=== PATIENT | female | born 1970 | race Caucasian/White ===

== ENCOUNTER 2020-11-02 14:51 | Emergency (ER) | payer BC, SELFPAY ==
[2020-11-02 14:57] VITALS: BP 145/88; PULSE 92; RESP 16; TEMP 37.1; O2SAT 100
--- NOTE | 2020-11-02 15:41 | ED.SKABFB ---
HPI - Skin/Abscess/Foreign Bdy General Chief complaint: Skin/Abscess/Foreign Body Stated complaint: rash Time Seen by Provider: 11/02/20 15:21 Source: patient and RN notes reviewed Mode of arrival: ambulatory Limitations: no limitations History of Present Illness HPI narrative: Patient presents today complaining of a 2-day history of hives. This seem to be worse today and have spread from her neck to her chest back about at her scalp. Denies trying any new foods, medications, household products. No new exposures to plants or animals. She took 1 Benadryl earlier this morning, 1 around 11 AM, and 1 prior to arrival. She has gotten no relief from the Benadryl. MD complaint: rash Related Data Home Medications Medication Instructions Recorded Confirmed levonorgestrel-ethinyl estrad tablet 11/02/20 [Vienva] valsartan-hydrochlorothiazide tablet 11/02/20 Allergies Allergy/AdvReac Type Severity Reaction Status Date / Time No Known Allergies Allergy Unverified 11/02/20 14:56 Review of Systems Review of Systems: Narrative: CONSTITUTIONAL: Denies body aches, fever, chills, or sweats. EYES: Denies visual changes, redness, or discharge. ENT: Denies rhinorrhea, congestion, sore throat, or otalgia. CARDIOVASCULAR: Denies chest pain, palpitations, or edema. RESPIRATORY: Denies cough or dyspnea. GASTROINTESTINAL: Denies abdominal pain, nausea, vomiting, or diarrhea. GENITOURINARY: Denies dysuria or hematuria. SKIN: + Hives MUSCULOSKELETAL: Denies back pain, joint pain, or myalgia. NEUROLOGIC: Denies headache, numbness, tingling, or weakness. PSYCH: Denies depression or anxiety. [facility] Past Medical History Medical History (Updated 11/02/20 @ 16:29 by Erendira Dozier, [facility], ) Hypertension Family History Family History (Updated 01/30/14 @ 07:13 by DOCTOR UNKNOWN) Father Hypertension Mother Hypertension Social History Social History Smoking status: Former smoker Smoking end date: 06/05/03 Comments At time of signature, I have reviewed and agree with nursing past medical, surgical, social and family history unless otherwise noted. Please see nursing chart for further information. There is no relevant family history pertinent to the presenting complaint Exam Narrative: Exam Narrative: GENERAL: Well-appearing, well-nourished, and in no acute distress. HEAD: Normocephalic, atraumatic. EYES: EOMI. No redness or drainage. Conjunctivae normal. ENT: Mucous membranes pink and moist. Nares clear. No rhinorrhea. Throat normal. Uvula midline. NECK: Normal AROM. Supple. No lymphadenopathy. CHEST: No respiratory distress. Clear to auscultation. HEART: Regular rate and rhythm. No murmur appreciated. Normal peripheral pulses. ABDOMEN: Soft, nontender, nondistended, normal active bowel sounds. MUSCULOSKELETAL: No bony tenderness. EXTREMITIES: Normal range of motion. No edema. SKIN: Warm, dry. Capillary refill normal. Normal skin turgor.+ Urticarial lesions to the neck, chest, bilateral arms, low back, and scalp. No facial swelling. NEURO: No focal deficits. Alert and oriented x3. Gait steady. PSYCH: Normal affect. No signs of depression or anxiety. Course Vital Signs Vital signs: Vital Signs Temperature 98.7 F 11/02/20 14:57 Pulse Rate 92 11/02/20 14:57 Respiratory Rate 16 11/02/20 14:57 Blood Pressure 145/88 H 11/02/20 14:57 Pulse Oximetry 100 11/02/20 14:57 Temperature 98.7 F 11/02/20 14:57 Pulse Rate 92 11/02/20 14:57 Respiratory Rate 16 11/02/20 14:57 Blood Pressure 145/88 H 11/02/20 14:57 Pulse Oximetry 100 11/02/20 14:57 Reviewed. Pt has been instructed to follow up with her PCP regarding her elevated blood pressure today. MDM - Skin/Abscess/Foreign Bdy Differential Diagnosis Differential diagnosis: Likely abscess of skin or subcutaneous tissue, urticaria, herpes zoster, allergic reaction to drug, cellulitis, eczema, insect bites, impetigo and contact
[2020-11-02] MEDS: methylPREDNISolone SOD SUCC 125 MG VIAL IM (15:42)
== END 2020-11-02 16:02 | disposition home or self-care (01) ==
PROVIDERS: Emergency Provider Nurse Practitioner; PCP Family Medicine Adolescent Medicine
DX: L50.9 Urticaria, unspecified (principal); I10 Essential (primary) hypertension
CPT/HCPCS: 96372; 99213; G0463; J2930

== ENCOUNTER → 2021-02-25 13:11 | Outpatient (CLI) | payer BC, SELFPAY ==
--- NOTE | ~2021-02-25 | MM_ITS ---
EXAMINATION: MM screening fouzia BI w delmi HISTORY: Screening mammogram TECHNIQUE: Craniocaudal and mediolateral oblique 3-D tomosynthesis images were obtained and synthetic 2-D images were generated. Bilateral rotated lateral cc views. .CAD analysis was submitted and inter preted. COMPARISON: 04/18/2018, 04/27/2012 bilateral digital screening mammogram examinations BREAST PARENCHYMAL COMPOSITION: The breasts are heterogeneously dense, which may obscure small masses . FINDINGS: 6 mm circumscribed right axillary tail probable lymph node; likely the corner of this lymph node is evident on 04/18/2018 right MLO view.. There is no evidence of suspicious mass, calcificatio n, or architectural distortion to suggest malignancy in either breast. There has been no suspicious i nterval change. IMPRESSION: 1. No mammographic evidence of malignancy. 2. Recommend routine screening mammography in one year. BI-RADS Category 2: Benign finding(s). Reviewed, dictated and finalized at location A.
== END ==
PROVIDERS: PCP Family Medicine Adolescent Medicine; Visit Provider Family Medicine Adolescent Medicine
DX: Z12.31 Encounter for screening mammogram for malignant neoplasm of breast (principal)
CPT/HCPCS: 77063; 77067

== ENCOUNTER 2021-04-12 00:03 | Day surgery (SDC) | payer BC, SELFPAY ==
[2021-03-30 12:37] VITALS: BMI 27.9
--- NOTE | 2021-04-09 15:48 | PM.HPGS ---
History of Present Illness History of Present Illness Consent: Risks, benefits, and alternatives have been discussed and questions answered. Patient agrees to proceed with procedure. Chief complaint: neoplasm screening Narrative: Brooke Callahan is a 50 year old female referred for colon cancer screening Review of Systems Review of Systems: All systems reviewed & are unremarkable except as noted in HPI and below PMFSH Past Medical History Medical History Hypertension Family History Family History Father Hypertension Mother Hypertension Social History Social History Smoking status: Former smoker Smoking end date: 06/05/03 Alcohol intake: current Drinks per week: 5 Substance use: never Living arrangements: with family Spiritual care concerns: No Meds Home Medications and Allergies Home Medications Medication Instructions Recorded Confirmed Type levonorgestrel-ethinyl estrad 1 tablet PO DAILY 11/02/20 03/30/21 History [Vienva] metoprolol succinate 100 mg PO DAILY 03/30/21 03/30/21 History Allergies Allergy/AdvReac Type Severity Reaction Status Date / Time No Known Allergies Allergy Verified 03/30/21 12:34 Exam Resp: Auscultation: clear to auscultation bilaterally Cardio: Rate: regular rate Rhythm: regular rhythm GI: GI Palp: Yes Soft to palpation and No Tenderness to palpation present (GI) Assessment and Plan Assessment and plan (1) Colon cancer screening: Code(s): Z12.11 - Encounter for screening for malignant neoplasm of colon Status: Acute Assessment and Plan: Colonoscopy with possible biopsy or polypectomy or cautery or injection of substances.
[2021-04-12 07:15] VITALS: BP 157/100; PULSE 87; RESP 16; TEMP 36.7; O2SAT 100; BMI 28.0
[2021-04-12] MEDS: LACTATED RINGERS 1,000 ML 150 ML IV CONT (07:29)
--- NOTE | 2021-04-12 07:36 | WPDANESEPPF ---
Anes - Initial Pre Proc Eval Procedure: Operation Date: 04/12/21 08:00 Proposed Procedures p Screening Colonoscopy - Artie Mccurdy MD Date/Time: 04/12/21 07:36 Surgeon: Artie Mccurdy MD Pre Op Diagnosis: neoplasm screening Patient Data Age: 50 Gender: F Height: 1.68 m Weight: 78.9 kg Last Vital Signs Temp 36.7 C 04/12/21 07:15 Pulse 87 04/12/21 07:15 Resp 16 04/12/21 07:15 BP 157/100 H 04/12/21 07:15 Pulse Ox 100 04/12/21 07:15 Allergies Allergy/AdvReac Type Severity Reaction Status Date / Time No Known Allergies Allergy Verified 04/12/21 07:14 Home Medications Medication Instructions Recorded Confirmed Type levonorgestrel-ethinyl estrad 1 tablet PO DAILY 11/02/20 03/30/21 History [Vienva] metoprolol succinate 100 mg PO DAILY 03/30/21 03/30/21 History Patient hx anesthesia problems: none Family hx anesthesia problems: none Results Review: All pre-operative results and documents have been reviewed as part of the pre-operative evaluation. [facility] Past Medical History Medical History (Updated 04/12/21 @ 07:37 by Jose Caraballo MD) Hypertension Rectal fistula Family History Family History Father Hypertension Mother Hypertension Social History Social History Smoking status: Former smoker Smoking end date: 06/05/03 Alcohol intake: current Drinks per week: 5 Substance use: never Living arrangements: with family Spiritual care concerns: No Anes - Eval Final PreProcedure Day of Procedure 04/12/21 07:36 Patient weight: overweight Heart: regular rate and rhythm Lungs: clear to auscultation Airway: Mallampati scale class 1 Neurological: alert and oriented Last oral intake: >/= 8 hours ASA classification: II Emergent: no Anesthetic plan: proceed Anesthesia type and monitoring: general GIVS and standard monitoring Results Review: All pre-operative results and documents have been reviewed as part of the pre-operative evaluation. Informed Consent: The patient's anesthetic plan and its attendant risks and benefits were discussed with the patient/family/POA. Questions were solicited and answers provided to the satisfaction of the patient/family/POA.
[2021-04-12 08:24] VITALS: BP 136/87; PULSE 85; RESP 18; O2SAT 100
[2021-04-12 08:34] VITALS: BP 138/87; PULSE 84; RESP 37; O2SAT 100
[2021-04-12 08:44] VITALS: BP 147/94; PULSE 81; RESP 16; O2SAT 100
== END 2021-04-12 08:48 | disposition home or self-care (01) ==
PROVIDERS: PCP Family Medicine Adolescent Medicine; Visit Provider Internal Medicine Gastroenterology
PROC: 0DJD8ZZ Inspection of Lower Intestinal Tract, Via Natural or Artificial Opening Endoscopic (ICD-10-PCS; CPT 45378; principal; 2021-04-12 08:00)
DX: Z12.11 Encounter for screening for malignant neoplasm of colon (principal); K57.30 Diverticulosis of large intestine without perforation or abscess without bleeding; I10 Essential (primary) hypertension; Z87.891 Personal history of nicotine dependence
CPT/HCPCS: 45378; J2704; J7120

== ENCOUNTER → 2022-09-06 15:53 | Outpatient (CLI) | payer BC, SELFPAY ==
--- NOTE | ~2022-09-06 | MM_ITS ---
EXAMINATION: MM screening fouzia BI w delmi HISTORY: Screening mammogram TECHNIQUE: Craniocaudal and mediolateral oblique 3-D tomosynthesis images were obtained and synthetic 2-D images were generated. Bilateral rotated lateral CC views. CAD analysis was submitted and interp reted. COMPARISON: 02/25/2021, 04/18/2018 bilateral screening mammogram examinations BREAST PARENCHYMAL COMPOSITION: The breasts are heterogeneously dense, which may obscure small masses . FINDINGS: There is no evidence of suspicious mass, calcification, or architectural distortion to sugg est malignancy in either breast. There has been no suspicious interval change. IMPRESSION: 1. No mammographic evidence of malignancy. 2. Recommend routine screening mammography in one year. BI-RADS Category 1: Negative Reviewed, dictated and finalized at location A.
== END ==
PROVIDERS: PCP Family Medicine Adolescent Medicine; Visit Provider Physician Assistant
DX: Z12.31 Encounter for screening mammogram for malignant neoplasm of breast (principal)
CPT/HCPCS: 77063; 77067

== ENCOUNTER 2024-07-11 13:54 | Outpatient (CLI) | payer BC, SELFPAY ==
--- NOTE | ~2024-07-11 | MM_ITS ---
EXAMINATION: MM screening fouzia BI w delmi HISTORY: Screening TECHNIQUE: Craniocaudal and mediolateral oblique 3-D tomosynthesis images were obtained and synthetic 2-D images were generated. CAD analysis was submitted and interpreted. COMPARISON: Comparison to multiple prior studies sequentially, with oldest reviewed study dated 04/05. BREAST PARENCHYMAL COMPOSITION: Dense: The breasts are heterogeneously dense, which may obscure small masses FINDINGS: There is no evidence of suspicious mass, calcification, or architectural distortion to sugg est malignancy in either breast. There has been no suspicious interval change. IMPRESSION: 1. No mammographic evidence of malignancy. 2. Recommend routine screening mammography in one year. BI-RADS Category 1: Negative Reviewed, dictated and finalized at location B. [employer]
== END 2024-07-11 13:55 | disposition home or self-care (01) ==
LOC: MICIMG 13:54
PROVIDERS: PCP Family Medicine Adolescent Medicine; Visit Provider Family Medicine Adolescent Medicine
DX: Z12.31 Encounter for screening mammogram for malignant neoplasm of breast (principal)
CPT/HCPCS: 77063; 77067

== ENCOUNTER 2024-08-03 00:15 | Emergency (ER) | payer BC, SELFPAY ==
[2024-08-03 00:20] VITALS: BP 177/103; PULSE 110; RESP 20; TEMP 36.2; O2SAT 96
[2024-08-03 00:46] LABS: Add Urine Microscopic? YES; Appearance Urine Clear (Clear); Bacteria Urine None Seen /hpf; Bilirubin Urine Negative (Negative); Blood Urine Negative (Negative); Color Urine Dark Yellow (Yellow); Glucose Urine UA Negative (Negative); Ketones Urine 2+ mg/dL (Negative); Leukocyte Esterase Ur Negative LEU/UL (Negative); Need Manual Microscopic Reviewed; Nitrate Urine Positive (Negative); Non Pathogenic Casts 0-2; Protein Urine Negative (Negative); RBC Urine 0-2 /hpf (0-2); Squamous Epithelial Cell Urine Occasional /hpf (Few); Urobilinogen Urine 0.2 mg/dL (<2.0); WBC Urine 0-5 /hpf (0-3); pH Urine 7.5 (5.0-9.0)
[2024-08-03 02:00] VITALS: BP 171/99; PULSE 103; RESP 16; TEMP 37.2; O2SAT 100
--- NOTE | 2024-08-03 02:05 | ED.ABDPAIN ---
HPI - Abdominal Pain General Chief Complaint: Urogenital-Female <Rosario Peoples APRN - Last Filed: 08/03/24 04:56> Stated Complaint: Abd pain, n/v, urinary symptoms <Rosario Peoples APRN - Last Filed: 08/03/24 04:56> Time Seen by Provider: 08/03/24 01:46 <Rosario Peoples APRN - Last Filed: 08/03/24 04:56> History of Present Illness HPI narrative: Patient is a 53-year-old female presents to the ER with complaints significant abdominal pain that started around 5:30 p.m. on August 02, 2024. She reports she has had to urinate more frequently recently. Patient reports pain is constant and does not worsen with palpation. She denies any recent fevers, constipation, shortness of breath, chest pain. Pt endorses a history of HTN, hyperlipidemia, rectal abscesses, joint pain. She reports she last had a bowel movement yesterday morning and it was ?normal for her. <Rosario Peoples APRN - Last Filed: 08/03/24 04:56> Related Data Allergies/Adverse Reactions: Allergies Allergy/AdvReac Type Severity Reaction Status Date / Time lisinopril AdvReac Intermediate cough Verified 08/03/24 02:03 <Rosario Peoples APRN - Last Filed: 08/03/24 04:56> Review of Systems Review of Systems: All systems reviewed & are unremarkable except as noted in HPI and below <Rosario Peoples APRN - Last Filed: 08/03/24 04:56> [facility] Past Medical History Medical History: Medical History Normal colonoscopy 04/12/21 Repeat Rectal fistula Hypertension <Rosario Peoples APRN - Last Filed: 08/03/24 04:56> Family History Family History: Family History Father Hypertension Mother Hypertension Acute myocardial infarction Colon polyp Heart disease Sibling Depression <Rosario Peoples APRN - Last Filed: 08/03/24 04:56> Social History Social History: Social History Smoking status: Former smoker (Quit 20 years ago) Second hand tobacco smoke exposure: No Smoking end date: 06/05/03 Alcohol intake: current Drinks per week: 5 Substance use: never Substance use type: does not use Current Housing: Decline to Answer Concerned About Future Housing: Decline to Answer Difficulty Paying Gas/Electric Bills: Decline to Answer Difficulty Paying for Meds: Decline to Answer Currently Unemployed: Decline to Answer Education: Decline to Answer Difficulty w/ Childcare or Family Care: Decline to Answer Living arrangements: other Occupation/Education: occupation Gender identity (if verbalized by the patient): Female Sexual Orientation (if Verbalized by the Patient): Straight or Heterosexual Spiritual care concerns: No Agree to blood products: Yes <Rosario Peoples APRN - Last Filed: 08/03/24 04:56> Exam Narrative: GENERAL: Well appearing, well-nourished, non-toxic, in mild distress d/t pain. HEAD: Normocephalic, atraumatic. NECK: Supple. No adenopathy, no masses. RESPIRATORY: Airway patent, respirations nonlabored. Clear to auscultation bilaterally, no rales, rhonchi, wheezing. CARDIOVASCULAR: Regular rate and rhythm without murmurs, rubs, or gallops. Peripheral pulses 2+ and equal bilaterally. ABDOMINAL: Soft, nontender with palpation, nondistended, no hepatosplenomegaly. Normoactive BS. + guarding, negative Celestin's sign, negative Psoas sign MUSCULOSKELETAL: Moves all extremities. Strength/ROM intact without gross deformities. SKIN: Warm, dry, normal color. No rashes. NEURO: A&O X3. Speech clear. Cranial nerves II-XII grossly intact. Steady gait. No ataxic movements. PSYCHIATRIC: Appropriate mood and affect. Normal interaction. <Rosario Peoples APRN - Last Filed: 08/03/24 04:56> Course Course Emergency Course: Patient signed out to my previous provider pending CT scan. Patient presents with UTI type symptoms. Her CT scan shows a left ureterovesicular junction calculus of 3 mm. Moderate left-sided hydronephrosis. Patient has a mild leukocytosis. Urinalysis with no signs of urinary tract infection. Patient was started on Macrobid by previous provider. I called and spoke to the urologist on-call who recommended adding Toradol for pain control, Flomax and the patient will have outpatient follow-up with urology services. I was informed that the stone is small and likely to pass on its own and given that she is not septic she can be discharged home at this time. Went and re-evaluated the patient who had no pain after receiving the previous doses of medications and was observed here for several hours without any recurrence for pain. Patient remains asymptomatic at this time and was made aware of the kidney stone and the prognosis with treatment options and recommendations from Urology. Patient will be comfortable following up outpatient according to her and she was safely discharged home at this time and given strict return precautions including intractable pain, intractable nausea, fever not responsive to Tylenol, back pain, difficulty or inability urinate. <Reynaldo Newby MD - Last Filed: 08/03/24 05:49> Vital Signs Vital signs: Vital Signs Temperature 36.2 C L 08/03/24 00:20 Pulse Rate 110 H 08/03/24 00:20 Respiratory Rate 20 08/03/24 00:20 Blood Pressure 177/103 H 08/03/24 00:20 Pulse Oximetry 96 08/03/24 00:20 Oxygen Delivery Room Air 08/03/24 00:20 Temperature 36.7 C 08/03/24 04:10 Pulse Rate 97 08/03/24 04:10 Respiratory Rate 16 08/03/24 04:10 Blood Pressure 178/71 H 08/03/24 04:10 Pulse Oximetry 97 08/03/24 04:10 Oxygen Delivery Room Air 08/03/24 00:20 <Rosario Peoples APRN - Last Filed: 08/03/24 04:56> Vital Signs Temperature 36.2 C L 08/03/24 00:20 Pulse Rate 110 H 08/03/24 00:20 Respiratory Rate 20 08/03/24 00:20 Blood Pressure 177/103 H 08/03/24 00:20 Pulse Oximetry 96 08/03/24 00:20 Oxygen Delivery Room Air 08/03/24 00:20 Temperature 36.7 C 08/03/24 04:10 Pulse Rate 97 08/03/24 04:10 Respiratory Rate 16 08/03/24 04:10 Blood Pressure 178/71 H 08/03/24 04:10 Pulse Oximetry 97 08/03/24 04:10 Oxygen Delivery Room Air 08/03/24 00:20 <Reynaldo Newby MD - Last Filed: 08/03/24 05:49> MDM - Abdominal Pain MDM Narrative Medical decision making narrative: Patient is a 53-year-old female presents to the ER with complaints significant abdominal pain that started around 5:30 p.m. on August 02, 2024. She reports she has had to urinate more frequently recently. Patient reports pain is constant and does not worsen with palpation. She denies any recent fevers, constipation, shortness of breath, chest pain. Pt endorses a history of HTN, hyperlipidemia, rectal abscesses, joint pain. She reports she last had a bowel movement yesterday morning and it was ?normal for her. Labs Ordered: CBC, CMP, UA Imaging Ordered: CT abdomen pelvis Medications Ordered: 1 L normal saline IV, morphine 4 mg IV, Toradol 15 mg IV, Zofran 4 mg IV, Macrobid p.o. Results: Patient's urinalysis indicates a UTI. Her CT abdomen/pelvis indicates pt is constipated. Diagnosis: UTI, constipation Consults: None necessary Patient Education/Shared MDM: Results shared with patient. She endorses improvement following medication administration. Patient strongly advised to maintain hydration status upon discharge and follow-up with her PCP. She will be discharged home with prescription for Macrobid PO x 5 days. Strict return precautions provided. Patient verbalized understanding is in agreement with plan. Vital signs stable at time of discharge. All questions answered. <Rosario Peoples APRN - Last Filed: 08/03/24 04:56> Differential Diagnosis Differential diagnosis: Likely abdominal pain, constipation, diverticulitis, gastroenteritis, small bowel obstruction and other (urinary tract infection) <Rosario Peoples APRN - Last Filed: 08/03/24 04:56> Lab Data Attestation: I reviewed the patient's lab results. <Rosario Peoples APRN - Last Filed: 08/03/24 04:56> Result diagrams: 08/03/24 02:01 08/03/24 02:00 <HOLLAND Nicole Last Filed: 08/03/24 04:56> Labs: Lab Results 08/03/24 08/03/24 08/03/24 Range/Units 00:26 02:00 02:01 WBC 16.6 H (4.5-10.0) K/mm3 RBC 4.91 (4.2-5.4) M/mm3 Hgb 12.1 (12.0-15.0) g/dL Hct 37.9 (37.0-47.0) % MCV 77.2 L (80-100) fl MCH 24.6 L (26-34) pg MCHC 31.9 L (32-36) g/dl RDW 15.9 H (11.5-14.5) % Plt Count 363 (150-375) k/mm3 MPV 9.4 (7.4-10.4) fl Immature Gran % (Auto) 0.4 (0-0.5) % Neut % (Auto) 89.0 H (45.5-73.1) % Lymph % (Auto) 7.1 L (18.3-44.2) % Coal % (Auto) 3.3 (2.6-8.5) % Eos % (Auto) 0.0 (0-4.4) % Baso % (Auto) 0.2 (0.2-1.2) % Lymph # (Auto) 1.17 (0.9-3.2) K/mm3 Coal # (Auto) 0.6 (0.1-0.6) K/mm3 Eos # (Auto) 0.0 (0-0.3) K/mm3 Baso # (Auto) 0.0 (0.0-0.1) K/mm3 Abs Immat Gran (auto) 0.06 H (0.00-0.031) K/mm3 Absolute Neuts (auto) 14.7 H (1.3-6.7) K/mm3 Absolute Nucleated RBC 0.000 (0.0-0.012) K/mm3 Nucleated RBC % 0.0 (0.0-0.2) % Sodium 135 L (137-145) mmol/L Potassium 3.7 (3.4-5.0) mmol/L Chloride 98 (98-107) mmol/L Carbon Dioxide 20 L (22-30) mmol/L Anion Gap 17 H (4-12) mmol/L BUN 17 (7-17) mg/dL Creatinine 1.10 H (0.7-1.0) mg/dL Estim Creat Clear Calc 55 ml/min Estimated GFR 52 L (59 - ) Glucose 129 H (65-110) mg/dL Calcium 9.5 (8.4-10.2) mg/dL Total Bilirubin 0.7 (0.2-1.3) mg/dL AST 26 (14-36) U/L ALT 19 (6-35) U/L Alkaline Phosphatase 63 (38-126) U/L Total Protein 8.0 (6.3-8.2) g/dL Albumin 4.7 (3.5-5.1) g/dL Urine Color Dark yellow (Yellow) Urine Appearance Clear (Clear) Urine pH 7.5 (5.0-9.0) Ur Specific [place] 1.010 (1.001-1.035) Urine Protein Negative (Negative) mg/dL Urine Glucose (UA) Negative (Negative) mg/dL Urine Ketones 2+ H (Negative) mg/dL Ur Blood (Man) Negative (Negative) Urine Nitrate Positive H (Negative) Urine Bilirubin Negative (Negative) Urine Urobilinogen 0.2 (<2.0) mg/dL Add Ur Microanalysis Reviewed Leukocyte Esterase Rfl Negative (Negative) ROSY/UL Urine RBC 0-2 (0-2) /hpf Urine WBC 0-5 (0-3) /hpf Ur Squamous Epith Cells Occasional (Few) /hpf Urine Bacteria None seen /hpf Urine Casts 0-2 <Rosario Peoples, SHOW DESIGN SUPERVISOR - Last Filed: 08/03/24 04:56> Lab Results 08/03/24 08/03/24 08/03/24 Range/Units 00:26 02:00 02:01 WBC 16.6 H (4.5-10.0) K/mm3 RBC 4.91 (4.2-5.4) M/mm3 Hgb 12.1 (12.0-15.0) g/dL Hct 37.9 (37.0-47.0) % MCV 77.2 L (80-100) fl MCH 24.6 L (26-34) pg MCHC 31.9 L (32-36) g/dl RDW 15.9 H (11.5-14.5) % Plt Count 363 (150-375) k/mm3 MPV 9.4 (7.4-10.4) fl Immature Gran % (Auto) 0.4 (0-0.5) % Neut % (Auto) 89.0 H (45.5-73.1) % Lymph % (Auto) 7.1 L (18.3-44.2) % Coal % (Auto) 3.3 (2.6-8.5) % Eos % (Auto) 0.0 (0-4.4) % Baso % (Auto) 0.2 (0.2-1.2) % Lymph # (Auto) 1.17 (0.9-3.2) K/mm3 Coal # (Auto) 0.6 (0.1-0.6) K/mm3 Eos # (Auto) 0.0 (0-0.3) K/mm3 Baso # (Auto) 0.0 (0.0-0.1) K/mm3 Abs Immat Gran (auto) 0.06 H (0.00-0.031) K/mm3 Absolute Neuts (auto) 14.7 H (1.3-6.7) K/mm3 Absolute Nucleated RBC 0.000 (0.0-0.012) K/mm3 Nucleated RBC % 0.0 (0.0-0.2) % Sodium 135 L (137-145) mmol/L Potassium 3.7 (3.4-5.0) mmol/L Chloride 98 (98-107) mmol/L Carbon Dioxide 20 L (22-30) mmol/L Anion Gap 17 H (4-12) mmol/L BUN 17 (7-17) mg/dL Creatinine 1.10 H (0.7-1.0) mg/dL Estim Creat Clear Calc 55 ml/min Estimated GFR 52 L (59 - ) Glucose 129 H (65-110) mg/dL Calcium 9.5 (8.4-10.2) mg/dL Total Bilirubin 0.7 (0.2-1.3) mg/dL AST 26 (14-36) U/L ALT 19 (6-35) U/L Alkaline Phosphatase 63 (38-126) U/L Total Protein 8.0 (6.3-8.2) g/dL Albumin 4.7 (3.5-5.1) g/dL Urine Color Dark yellow (Yellow) Urine Appearance Clear (Clear) Urine pH 7.5 (5.0-9.0) Ur Specific [place] 1.010 (1.001-1.035) Urine Protein Negative (Negative) mg/dL Urine Glucose (UA) Negative (Negative) mg/dL Urine Ketones 2+ H (Negative) mg/dL Ur Blood (Man) Negative (Negative) Urine Nitrate Positive H (Negative) Urine Bilirubin Negative (Negative) Urine Urobilinogen 0.2 (<2.0) mg/dL Add Ur Microanalysis Reviewed Leukocyte Esterase Rfl Negative (Negative) ROSY/UL Urine RBC 0-2 (0-2) /hpf Urine WBC 0-5 (0-3) /hpf Ur Squamous Epith Cells Occasional (Few) /hpf Urine Bacteria None seen /hpf Urine Casts 0-2 <Reynaldo Newby MD - Last Filed: 08/03/24 05:49> Discharge Plan Discharge Clinical Impression: Urinary tract infection, Constipation, Calculus of distal left ureter <Rosario Peoples APRN - Last Filed: 08/03/24 04:56> Patient Disposition: Home, Self-Care <Rosario Peoples APRN - Last Filed: 08/03/24 04:56> Condition: Stable <Rosario Peoples APRN - Last Filed: 08/03/24 04:56> Instructions: Antibiotic Form, Constipation (ED), Urinary Tract Infection in Women (ED), How to Strain Your Urine (ED), Flank Pain (ED) <Rosario Peoples APRN - Last Filed: 08/03/24 04:56> Additional Instructions: Please return to the ER with an worsening symptoms. Follow-up with primary care provider in the next 2-3 days. Take all medications as prescribed. Complete your entire antibiotic prescription. <Rosario Peoples APRN - Last Filed: 08/03/24 04:56> Patient Language: Icelandic <Rosario Peoples APRN - Last Filed: 08/03/24 04:56> Prescriptions: New nitrofurantoin monohyd/m-cryst [Macrobid] 100 mg capsule 100 mg PO Q12H 5 Days Qty: 10 0RF Rx Instructions: must administer with a meal/food phenazopyridine [Pyridium] 100 mg tablet 100 mg PO TID PRN (Reason: pain) Qty: 6 0RF hydrocodone-acetaminophen 5-325 mg tablet 1 tablet PO Q8H PRN (Reason: pain) Qty: 14 0RF ketorolac 10 mg tablet 10 mg PO Q8H PRN (Reason: pain) 5 Days Qty: 20 0RF Rx Instructions: maximum total duration of 5 days from all oral, intranasal, or parenteral formulations tamsulosin [Flomax] 0.4 mg capsule 0.4 mg PO DAILY Qty: 20 0RF No Action amlodipine 5 mg tablet 5 mg PO DAILY Qty: 90 3RF levonorgestrel-ethinyl estrad [Vienva] 0.1-20 mg-mcg tablet 1 tablet PO DAILY Qty: 84 3RF atorvastatin 20 mg tablet 20 mg PO DAILY Qty: 90 3RF <Rosario Peoples APRN - Last Filed: 08/03/24 04:56> Follow-up/Referrals: Juna Siddiqui MD [Physician] - 1 Week (Left 3mm stone, hydro) Helio Munguia MD [Primary Care Provider] - <Rosario Peoples APRN - Last Filed: 08/03/24 04:56> Time of Disposition: 05:49 <Rosario Peoples APRN - Last Filed: 08/03/24 04:56> 05:49 <Reynaldo Newby MD - Last Filed: 08/03/24 05:49>
[2024-08-03 02:07] LABS: Basophils Percent Auto 0.2 % (0.2-1.2); Hematocrit 37.9 % (37.0-47.0); Hemoglobin 12.1 g/dL (12.0-15.0); Immature Granulocyte Absolute 0.06 K/mm3 (0.00-0.031); Immature Granulocyte Percent A 0.4 % (0-0.5); Lymphocytes Absolute Auto 1.17 K/mm3 (0.9-3.2); Lymphocytes Percent Auto 7.1 % (18.3-44.2); Mean Corpuscular HGB Conc 31.9 g/dl (32-36); Mean Corpuscular Hemoglobin 24.6 pg (26-34); Mean Corpuscular Volume 77.2 fl (80-100); Mean Platelet Volume 9.4 fl (7.4-10.4); Monocytes Absolute Auto 0.6 K/mm3 (0.1-0.6); Monocytes Percent Auto 3.3 % (2.6-8.5); Neutrophils Absolute Auto 14.7 K/mm3 (1.3-6.7); Platelet Count Result 363 k/mm3 (150-375); Red Blood Count 4.91 M/mm3 (4.2-5.4); Red Cell Distribution Width 15.9 % (11.5-14.5); White Blood Count 16.6 K/mm3 (4.5-10.0)
[2024-08-03] MEDS: ONDANSETRON INJ 4 MG/2 ML VIAL IV PUSH (02:14)
[2024-08-03] MEDS: SODIUM CHLORIDE 0.9% IV 1,000 ML 999 ML IV CONT (02:14)
[2024-08-03] MEDS: KETOROLAC 15 MG/ML VIAL (*BKC) IV PUSH (02:15)
[2024-08-03] MEDS: MORPHINE SULFATE (*CRX) 4 MG/ML INJ IV PUSH (02:16)
[2024-08-03 02:17] LABS: Alanine Aminotransferase 19 U/L (6-35); Albumin Level 4.7 g/dL (3.5-5.1); Alkaline Phosphatase 63 U/L (38-126); Anion Gap 17 mmol/L (4-12); Aspartate Amino Transferase 26 U/L (14-36); Bilirubin,Total 0.7 mg/dL (0.2-1.3); Blood Urea Nitrogen 17 mg/dL (7-17); Calcium 9.5 mg/dL (8.4-10.2); Carbon Dioxide 20 mmol/L (22-30); Chloride 98 mmol/L (98-107); Estimated CRCL calculation 55 ml/min; Estimated Glomerular Filt Rate 52; Glucose 129 mg/dL (65-110); Potassium 3.7 mmol/L (3.4-5.0); Sodium 135 mmol/L (137-145)
[2024-08-03] MEDS: NITROFURANTOIN MONOHYD MACROCR 100 MG CAP PO (02:17)
[2024-08-03 04:10] VITALS: BP 178/71; PULSE 97; RESP 16; TEMP 36.7; O2SAT 97
== END 2024-08-03 05:56 | disposition home or self-care (01) ==
PROVIDERS: Student in an Organized Health Care Education/Training Program; Emergency Provider Registered Nurse; PCP Family Medicine Adolescent Medicine
DX: N13.2 Hydronephrosis with renal and ureteral calculous obstruction (principal); N39.0 Urinary tract infection, site not specified; K59.00 Constipation, unspecified; I10 Essential (primary) hypertension; E78.5 Hyperlipidemia, unspecified; Z87.891 Personal history of nicotine dependence
CPT/HCPCS: 36415; 74177; 80053; 81001; 85025; 87086; 96361; 96374; 96375; 99284; A9270; J1885; J2270; J2405; J7030; Q9967

== ENCOUNTER 2025-03-17 08:44 | Outpatient (CLI) | payer BC, SELFPAY ==
--- NOTE | ~2025-03-17 | CT_ITS ---
CT ABDOMEN AND PELVIS WITHOUT CONTRAST Clinical History: left ureteral stone, persistent pain Comparison: CT abdomen pelvis 08/03/2024 Technique: Unenhanced axial images lung bases to symphysis pubis Coronal, sagittal reformats CT images acquired with automatic exposure control for dose reduction DLP: 640 mGy-cm Findings: Without intravenous contrast, sensitivity for detecting visceral parenchymal abnormalities decreased. Lung bases: Clear. Visualized heart and pericardium: Unremarkable. Liver: Unremarkable. Gallbladder: Unremarkable. Spleen: Unremarkable. Pancreas: Unremarkable. Adrenal glands: Unremarkable. Kidneys: Right kidney- No hydronephrosis. Tiny stone.. Left kidney- No hydronephrosis. No renal stones. Distal esophagus/stomach: Unremarkable. Small bowel loops: Normal caliber and wall thickness. Colon: Diverticula. Normal caliber and wall thickness. Normal RLQ appendix. Nodes: No enlarged nodes. Peritoneum: No ascites. No free intraperitoneal air. Urinary bladder: Unremarkable. Uterus: Unremarkable. Adnexa: No masses. Bones: No acute bony abnormality. Soft tissues: Small umbilical hernia with fat. Unopacified abdominal aorta: No aneurysmal dilatation. IMPRESSION: 1. No obstructive uropathy. 2. Tiny stone right kidney but no hydronephrosis. 3. No other acute abnormality. Reviewed, dictated and finalized at location R.
== END 2025-03-17 08:45 | disposition home or self-care (01) ==
PROVIDERS: PCP Family Medicine Adolescent Medicine; Visit Provider Family Medicine Adolescent Medicine
DX: N20.1 Calculus of ureter (principal); R10.32 Left lower quadrant pain
CPT/HCPCS: 74176